=== PATIENT | female | born 1940 | race Hispanic/Latino ===

== ENCOUNTER 2017-12-30 01:16 | Emergency (ER) | payer MEDICARE, OTHER ==
[2017-12-30 02:24] LABS: ALT (SGPT) 7 U/L (8-55); AST (SGOT) 10 U/L (5-34); Albumin 3.6 g/dL (3.4-4.8); Alkaline Phosphatase 113 U/L (40-150); Anion Gap 13 mmol/L (10-20); BUN (Urea Nitrogen) 21 mg/dL (9.8-20.1); Bilirubin, Total 0.4 mg/dL (0.2-1.2); Calc. Creatinine Clearance 0 mL/min (70-130); Calcium 8.5 mg/dL (7.8-10.44); Carbon Dioxide 24 mmol/L (23-31); Chloride 102 mmol/L (98-107); Estimated GFR-MDRD 45; Globulin 3.6 g/dL (2.4-3.5); Glucose 104 mg/dL (83-110); Potassium 5.3 mmol/L (3.5-5.1); Protein, Total 7.2 g/dL (6.0-8.3); Sodium 134 mmol/L (136-145)
[2017-12-30 02:30] LABS: #Basophils 0.1 thou/uL (0.0-0.2); #Eosinphils 0.3 thou/uL (0.0-0.7); #Lymphocytes 1.7 thou/uL (1.20-3.40); #Monocytes 0.7 thou/uL (0.11-0.59); #Neutrophils 2.5 thou/uL (1.40-6.50); %Basophils 1.5 % (0.0-1.0); %Lymphocytes 31.7 % (21.0-51.0); %Monocytes 13.6 % (0.0-10.0); %Neutrophils 47.2 % (42.0-75.0); Mean Corpuscular HGB CONC 31.1 g/dL (32.0-36.0); Mean Corpuscular Hemoglobin 22.6 pg (27.0-31.0); Mean Corpuscular Volume 72.7 fl (81.0-99.0); Mean Platelet Volume 10.3 fL (7.4-10.4); Platelet Count 186 thou/uL (130-400); RBC Distribution Width 21.7 % (11.5-14.5); Red Blood Cell (RBC) Count 3.99 mill/uL (4.20-5.40); White Blood Cell (WBC) Count 5.2 thou/uL (4.8-10.8)
[2017-12-30 02:32] LABS: INR-International Normal Ratio 1.2; Prothrombin Time 15.7 SEC (12.0-14.7)
[2017-12-30 02:33] LABS: PTT 44.1 SEC (22.9-36.1)
[2017-12-30] MEDS ORDERED: HYDROcodone/Acetaminophen 10/325 mg Tablet ONE (06:13)
--- NOTE | 2017-12-30 10:14 | RAD ---
PORTABLE CHEST: Date: 12/30/17 COMPARISON: 03/14/11. HISTORY: Abdominal pain. FINDINGS: Heart size is enlarged. There are atherosclerotic changes of aorta. Lungs show some chronic change. N o focal infiltrates or signs of failure. Calcification in the left lung apex could be related to calc ified thyroid nodule or calcified lymph node in this region. IMPRESSION: Marked cardiomegaly. No signs of overt failure. POS: BEH
== END 2017-12-30 06:24 | disposition home or self-care (01) ==
LOC: ERS 01:16
DX: K62.5 Hemorrhage of anus and rectum (principal); E86.0 Dehydration; I10 Essential (primary) hypertension; E03.9 Hypothyroidism, unspecified; F41.9 Anxiety disorder, unspecified
CPT/HCPCS: 36415; 71045; 80053; 82274; 85025; 85610; 85730; 86850; 86900; 86901; 93005; 96360

== ENCOUNTER 2018-01-19 14:37 | Emergency (ER) | payer MEDICARE, OTHER ==
[2018-01-19 15:23] LABS: Hemoglobin 10.4 g/dL (12.0-16.0); Mean Corpuscular HGB CONC 31.1 g/dL (32.0-36.0); Mean Corpuscular Hemoglobin 24.3 pg (27.0-31.0); Mean Corpuscular Volume 78.2 fL (78.0-98.0); Mean Platelet Volume 10.3 fL (7.4-10.4); Platelet Count 187 thou/uL (130-400); RBC Distribution Width 23.2 % (11.5-14.5); Red Blood Cell (RBC) Count 4.29 mill/uL (4.20-5.40); White Blood Cell (WBC) Count 3.8 thou/uL (4.8-10.8)
[2018-01-19 15:43] LABS: #Eosinphils 0.2 thou/uL (0.0-0.7); #Lymphocytes 1.4 thou/uL (1.20-3.40); #Monocytes 0.5 thou/uL (0.11-0.59); #Neutrophils 1.7 thou/uL (1.40-6.50); %Basophils 0.6 % (0.0-1.0); %Eosinophils 5.2 % (0.0-10.0); %Lymphocytes 36.1 % (21.0-51.0); %Monocytes 12.7 % (0.0-10.0); %Neutrophils 45.4 % (42.0-75.0); Anisocytosis SLIGHT = 6-15 cells (100X) (0-5/hpf); Hypochromia SLIGHT = 6-15 cells (100X) (0-5/hpf); Large Platelets SLIGHT; MDiff Complete? YES; PLT Morphology Comment Appears Adequate
[2018-01-19 15:44] LABS: ALT (SGPT) 10 U/L (8-55); AST (SGOT) 14 U/L (5-34); Albumin 3.4 g/dL (3.4-4.8); Alkaline Phosphatase 87 U/L (40-150); Anion Gap 11 mmol/L (10-20); BUN (Urea Nitrogen) 16 mg/dL (9.8-20.1); Bilirubin, Total 0.3 mg/dL (0.2-1.2); Calc. Creatinine Clearance 0 mL/min (70-130); Calcium 8.5 mg/dL (7.8-10.44); Carbon Dioxide 27 mmol/L (23-31); Chloride 104 mmol/L (98-107); Estimated GFR-MDRD 66; Globulin 3.6 g/dL (2.4-3.5); Glucose 92 mg/dL (83-110); Potassium 4.4 mmol/L (3.5-5.1); Sodium 138 mmol/L (136-145)
[2018-01-19 15:48] LABS: CKMB 0.7 ng/mL (0-6.6); Troponin I Less than 0.010 ng/mL (< 0.028)
--- NOTE | 2018-01-19 16:44 | RAD ---
SINGLE VIEW OF THE CHEST: 01/19/18 COMPARISON: 12/30/17 HISTORY: Chest pain. FINDINGS: Single view of the chest shows an enlarged but stable cardiomediastinal silhouette with atherosclerot ic calcifications in the aorta. A calcification is seen in the left neck at the cervicothoracic junct ion. There is no evidence of consolidation, mass, or pleural effusion. IMPRESSION: Stable cardiomegaly. POS: BE
== END 2018-01-19 17:15 | disposition home or self-care (01) ==
LOC: ERS 14:37
DX: K64.4 Residual hemorrhoidal skin tags (principal); K62.5 Hemorrhage of anus and rectum; I26.99 Other pulmonary embolism without acute cor pulmonale; Z79.01 Long term (current) use of anticoagulants; E03.9 Hypothyroidism, unspecified; D50.9 Iron deficiency anemia, unspecified; I10 Essential (primary) hypertension; J44.9 Chronic obstructive pulmonary disease, unspecified; F41.9 Anxiety disorder, unspecified
CPT/HCPCS: 36415; 71045; 80053; 82553; 83880; 84484; 85025; 85610; 85730; 86850; 86900; 86901; 93005

== ENCOUNTER 2018-02-04 15:49 | Inpatient (IN) | payer MEDICARE, OTHER ==
[2018-02-04 16:30] LABS: Hemoglobin 10.6 g/dL (12.0-16.0); Mean Corpuscular HGB CONC 32.9 g/dL (32.0-36.0); Mean Corpuscular Hemoglobin 26.1 pg (27.0-31.0); Mean Corpuscular Volume 79.1 fL (78.0-98.0); Mean Platelet Volume 10.8 fL (7.4-10.4); Platelet Count 174 thou/uL (130-400); RBC Distribution Width 22.7 % (11.5-14.5); Red Blood Cell (RBC) Count 4.06 mill/uL (4.20-5.40); White Blood Cell (WBC) Count 3.5 thou/uL (4.8-10.8)
[2018-02-04 16:50] LABS: ALT (SGPT) Less than 7 U/L (8-55); AST (SGOT) 13 U/L (5-34); Albumin 3.5 g/dL (3.4-4.8); Alkaline Phosphatase 91 U/L (40-150); Anion Gap 12 mmol/L (10-20); BUN (Urea Nitrogen) 23 mg/dL (9.8-20.1); Bilirubin, Total 0.4 mg/dL (0.2-1.2); Calc. Creatinine Clearance 0 mL/min (70-130); Calcium 8.8 mg/dL (7.8-10.44); Carbon Dioxide 21 mmol/L (23-31); Chloride 103 mmol/L (98-107); Estimated GFR-MDRD 61; Globulin 3.8 g/dL (2.4-3.5); Glucose 100 mg/dL (83-110); Potassium 5.3 mmol/L (3.5-5.1); Protein, Total 7.3 g/dL (6.0-8.3); Sodium 131 mmol/L (136-145)
[2018-02-04 16:51] LABS: #Eosinphils 0.2 thou/uL (0.0-0.7); #Lymphocytes 1.5 thou/uL (1.20-3.40); #Monocytes 0.4 thou/uL (0.11-0.59); #Neutrophils 1.4 thou/uL (1.40-6.50); %Eosinophils 5.3 % (0.0-10.0); %Lymphocytes 41.7 % (21.0-51.0); %Monocytes 11.9 % (0.0-10.0); %Neutrophils 40.1 % (42.0-75.0); Anisocytosis SLIGHT = 6-15 cells (100X) (0-5/hpf); Hypochromia SLIGHT = 6-15 cells (100X) (0-5/hpf); MDiff Complete? YES; PLT Morphology Comment Appears Adequate
[2018-02-04 17:47] LABS: INR-International Normal Ratio 2.9; Prothrombin Time 30.2 SEC (12.0-14.7)
[2018-02-04] MEDS ORDERED: methylPREDNISolone Sod Succ/PF 125 MG/2 ML VIAL ONE (18:00)
[2018-02-04] MEDS ORDERED: diphenhydrAMINE 50 MG/ML VIAL ONE (18:00)
[2018-02-04] MEDS ORDERED: Water For Inject, Bacteriostat 30 ML ONE (18:00)
[2018-02-04] MEDS ORDERED: Famotidine 20 MG TAB ONE (18:04)
[2018-02-04 19:55] LABS: Bilirubin Negative (Negative); Blood, Urine Negative (Negative); Clarity CLEAR (Clear); Glucose, Urine (Dipstick) Negative (Negative); Leukocyte Trace (Negative); Nitrite Negative (Negative); Protein, Urine (Dipstick) Negative (Neg-Trace); Specific Gravity, Urine 1.008 (1.002-1.036); Urobilinogen 0.2 mg/dL (0.2-1.0); pH, Urine 6.5 (5.0-9.0)
[2018-02-04 19:57] LABS: Bacteria/HPF None Seen HPF (None Seen); Hyaline Casts/LPF 0-3 HYALINE CAST LPF (0-3 Hyaline); Pathc Cast-AUWi Flag 0.29 (0-2.49); RBC/HPF 0-3 HPF (0-3); Squamous Epithelial 0-3 HPF (0-3); WBC/HPF 0-3 HPF (0-3)
[2018-02-04] MEDS ORDERED: Pantoprazole 40 MG VIAL ONE (21:10)
[2018-02-04] MEDS ORDERED: Acetaminophen 325 MG TAB PO PRN (21:34)
[2018-02-04] MEDS ORDERED: Ondansetron HCl/PF 4 MG/2 ML Vial IVP PRN (21:34)
[2018-02-04 22:49] VITALS: BMI 38.0
--- NOTE | 2018-02-04 23:03 | CT ---
CT ABDOMEN WITHOUT CONTRAST: CT PELVIS WITHOUT CONTRAST: HISTORY: Bright red bloody stools. Diffuse abdominal pain. Recent hospitalization for anemia. Previous PE. COMPARISON: None. TECHNIQUE: An abdomen and pelvis CT is performed with IV contrast. Oral contrast is administered. Coronal refo rmatted images are submitted for interpretation. FINDINGS: ABDOMEN: The lung bases are clear. The heart is enlarged. There is evidence of pericardial fluid. There is atherosclerosis of the visualized aorta. No paraaortic fat stranding. Limited evaluation of the alimentary canal due to lack of IV contrast administration. Grossly, the l iver, spleen, and adrenal glands are unremarkable. There is marked atrophy of the pancreas. The left kidney appears to be surgically absent. With regard to the right kidney, multiple hypodensi ties are noted, with attenuation coefficients of 12, 14, and 6 Hounsfield unit. A combination of sim ple and complex cysts is favored. There is no evidence of an obstructing calculus in the intrarenal or extrarenal collecting system. The left kidney does appear to be surgically absent. Correlate cli nically. There is a nonspecific, well circumscribed, hypodensity on the gastrohepatic ligament, measuring 1.4 x 1.8 cm. The possibility of a lymph node is raised. There is no retrocrural or periportal lymphade nopathy. There appear to be calcified periportal lymph nodes. No mesenteric mass, lymphadenopathy, free air, or free fluid. Symmetric attenuation of the psoas muscles. The gastric mucosa, the duodenum, and multiple normal caliber small bowel loops are noted. The ileoc ecal junction is normal. There is scattered fecal material in a nondistended, nondilated colon. The re is evidence of diverticulosis without evidence of diverticulitis. There is mucosal thickening inv olving the proximal, mid, and sigmoid colon. Additional mucosal thickening in the rectum is noted. Evaluation is limited due to lack of adequate distention. Contrast is not present. PELVIS: Limited evaluation due to attenuation artifact from right hip prosthesis. No obvious pelvis mass, lymphadenopathy, free air, or free fluid. There appears to be a hemangioma involving the L1 vertebral body. Additional hemangioma at L3 is not ed. There appears to be vertebral plana at T12, likely chronic. Hemangioma at T12 is also noted. A dditional hemangioma at T8 is identified. IMPRESSION: 1. Absent left kidney. Correlate clinically for congenital absence. 2. No evidence of right-sided obstructive uropathy. 3. Nonspecific enlarged gastrohepatic lymph node. Correlate. 4. Probable simple and complex cysts associated with the right kidney. Consider renal ultrasound. 5. Multifocal vertebral body hemangiomas. Vertebral plana at T12. 6. Mucosal thickening of the colon, as described above. Evaluate is incomplete and limited. Given the patient's history, correlation with recent colonoscopy report is recommended. POS: ARI
[2018-02-04] MEDS: Sodium Chloride 0.9% 1,000 ML IV SCH (23:31)
[2018-02-04 23:54] LABS: Hemoglobin 10.9 g/dL (12.0-16.0)
[2018-02-05] MEDS: Pantoprazole 80 MG in Sodium Chloride 0.9% 100 ML IVP SCH ×2 (00:19→09:47)
[2018-02-05] MEDS: HYDROcodone/Acetaminophen 5/325 mg Tablet PO PRN ×3 (02:44→15:49)
[2018-02-05 05:53] LABS: Anion Gap 14 mmol/L (10-20); BUN (Urea Nitrogen) 19 mg/dL (9.8-20.1); Calc. Creatinine Clearance 96 mL/min (70-130); Calcium 9.2 mg/dL (7.8-10.44); Carbon Dioxide 20 mmol/L (23-31); Chloride 107 mmol/L (98-107); Estimated GFR-MDRD 66; Glucose 162 mg/dL (83-110); Potassium 5.8 mmol/L (3.5-5.1); Sodium 135 mmol/L (136-145)
[2018-02-05 06:38] LABS: #Lymphocytes 0.6 thou/uL (1.20-3.40); #Monocytes 0.1 thou/uL (0.11-0.59); #Neutrophils 1.2 thou/uL (1.40-6.50); %Basophils 0.2 % (0.0-1.0); %Eosinophils 1.5 % (0.0-10.0); %Lymphocytes 30.3 % (21.0-51.0); %Monocytes 4.3 % (0.0-10.0); %Neutrophils 63.7 % (42.0-75.0); Anisocytosis SLIGHT = 6-15 cells (100X) (0-5/hpf); Hemoglobin 11.1 g/dL (12.0-16.0); MDiff Complete? YES; Mean Corpuscular HGB CONC 31.8 g/dL (32.0-36.0); Mean Corpuscular Hemoglobin 25.3 pg (27.0-31.0); Mean Corpuscular Volume 79.5 fL (78.0-98.0); Mean Platelet Volume 11.1 fL (7.4-10.4); Platelet Count 188 thou/uL (130-400); RBC Distribution Width 22.4 % (11.5-14.5); Red Blood Cell (RBC) Count 4.39 mill/uL (4.20-5.40); White Blood Cell (WBC) Count 1.9 thou/uL (4.8-10.8)
[2018-02-05] MEDS ORDERED: Non-Formulary Item 1 EACH (Olopatadine Hcl [Olopatadine Hcl] 1 DROP) EA EYE PRN ×2 (06:38→06:55)
--- NOTE | 2018-02-05 08:38 | HP ---
CODE STATUS: Patient is FULL CODE. TIME OF EVALUATION: 09:20 p.m. PRIMARY CARE DOCTOR: Dr. Cheatham. GASTROENTEROLOGY: Dr. Iraheta. CHIEF COMPLAINT: Blood in the stools. HISTORY OF PRESENT ILLNESS: This is a 77-year-old female patient with a past medical history of colo opal polyps, also a history of pulmonary embolism, on chronic anticoagulation. The patient came to [facility] after having an episode of bloody stools, the symptoms were of sudden onset, associated wi nausea, no clear triggers, no alleviating factors. REVIEW OF SYSTEMS: Constitutional: No fever, no chills or generalized weakness. Respiratory: No c ough, no sputum production, no shortness of breath. Cardiovascular: No chest pain, palpitations, sh ortness of breath. Gastrointestinal: No nausea, no vomiting. The patient has bloody stools, abdomi nal pain. RESOURCE MANAGEMENT PLANNER: No dizziness, headache, or feeling lightheaded. Genitourinary: No burning on urina tion. Extremities: No leg swelling. All other systems were reviewed and negative except for the fi ndings mentioned above. PAST MEDICAL HISTORY: Positive for pulmonary embolism, hypothyroidism, iron deficiency anemia, hyper tension, COPD, partial nephrectomy. PAST SURGICAL HISTORY: Left knee and right hip replacement, cholecystectomy, , hysterectomy , nephrectomy on the left. PSYCHIATRIC HISTORY: Anxiety. SOCIAL HISTORY: No drugs. No smoking history. FAMILY HISTORY: Unknown. ALLERGIES: CODEINE, IODINE. REPORTED MEDICATIONS: Aspirin, albuterol, benazepril, nitro, simvastatin, Synthroid, allopurinol, ma gnesium, and iron. PHYSICAL EXAMINATION: VITAL SIGNS: On presentation, blood pressure 130/69 with heart rate 66, respiratory rate was 18, tem perature 98.3, pain was 9/10. GENERAL: Patient is alert, oriented, in no acute distress. HEENT: Eyes, normal conjunctivae. Moist oral mucosa. Eye anicteric. NECK: No JVD. RESPIRATORY: Bilateral air entry. No rales, no wheezing. Symmetric expansion. CARDIOVASCULAR: Normal rate, regular rhythm, no murmurs, no gallop, no edema. ABDOMEN: Soft, normal bowel sounds. MUSCULOSKELETAL: Baseline range of motion and strength. No tenderness. SKIN: Warm and intact. No pallor, no rash, no redness. NEUROLOGIC: Baseline sensory. No evidence of any new focal weakness. Baseline speech. Cranial ner ves seem to be intact. PSYCHIATRIC: The patient is in good mood, no anxiety, oriented, optimal judgment. IMAGING: Abdomen CAT scan was reviewed that showed no acute findings. ASSESSMENT AND PLAN: The patient was placed in the hospital with the following medical problems. 1. Gastrointestinal bleeding. Patient had melanotic stools, patient was also taking iron, so unclea r if this is a combination of the iron pills and lower gastrointestinal bleeding, hemoglobin was stab le. Dr. Iraheta has seen this patient in the past and did a colonoscopy, who has been consulted for as sistance of this patient. The patient is on chronic anticoagulation for pulmonary embolism, so we ar e unable to hold anticoagulation for now. Bleeding has been minimal. We will follow with Dr. Iraheta' s recommendation. 2. Morbid obesity, advised to lose weight. 3. Hyponatremia, sodium 135, this is minimal, no need for any acute intervention. 4. Hyperkalemia, this is mild, potassium 5.3, repeat one 5.8. We will treat accordingly. 5. Hyperglycemia, 162. 6. History of pulmonary embolism, on chronic anticoagulation that we will continue for now. 7. Deep vein thrombosis prophylaxis.
[2018-02-05] MEDS ORDERED: Non-Formulary Item 1 EACH (Brimonidine Tartrate [Alphagan P 0.1% Ophth Soln] 1 DROP) R EYE SCH (09:00)
[2018-02-05] MEDS ORDERED: Carvedilol 25 MG TAB PO SCH ×2 (09:30→21:00)
[2018-02-05] MEDS: Brimonidine Tartrate 0.2% Ophth Soln 5 ml Bottle R EYE SCH ×2 (09:47→20:06)
[2018-02-05 12:06] LABS: Hemoglobin 12.4 g/dL (12.0-16.0)
[2018-02-05 13:44] LABS: #Lymphocytes 0.7 thou/uL (1.20-3.40); #Neutrophils 1.3 thou/uL (1.40-6.50); %Basophils 0.2 % (0.0-1.0); %Eosinophils 1.9 % (0.0-10.0); %Lymphocytes 36.1 % (21.0-51.0); %Monocytes 0.6 % (0.0-10.0); %Neutrophils 61.2 % (42.0-75.0); Mean Corpuscular Hemoglobin 54.6 pg (27.0-31.0); Mean Corpuscular Volume 82.1 fL (78.0-98.0); Mean Platelet Volume 11.7 fL (7.4-10.4); Platelet Count 205 thou/uL (130-400); Red Blood Cell (RBC) Count 5.03 mill/uL (4.20-5.40); White Blood Cell (WBC) Count 2.1 thou/uL (4.8-10.8)
[2018-02-05] MEDS ORDERED: Albuterol Sulfate 2.5 mg/3 ml Neb NEB PRN (16:50)
[2018-02-05] MEDS ORDERED: diphenhydrAMINE 25 MG CAP PO PRN (17:52)
--- NOTE | 2018-02-05 18:04 | EKG ---
Test Reason : Blood Pressure : / mmHG Vent. Rate : 063 BPM Atrial Rate : 063 BPM P-R Int : 182 ms QRS Dur : 084 ms QT Int : 438 ms P-R-T Axes : 041 090 059 degrees QTc Int : 448 ms Normal sinus rhythm Rightward axis Borderline ECG When compared with ECG of 19-JAN-2018 14:55, Premature ventricular complexes are no longer Present Nonspecific T wave abnormality no longer evident in Inferior leads Confirmed by KISHORE BANG, SRich ([id number]) on 02/05/2018 6:03:43 PM Referred By: DENISE Confirmed By:DR. Selwyn NOVAK MD
[2018-02-05] MEDS: Carvedilol 25 MG TAB PO SCH (18:06)
[2018-02-05] MEDS: Sodium Chloride 0.9% 1,000 ML IV SCH (18:09)
[2018-02-05 18:42] LABS: Hemoglobin 11.5 g/dL (12.0-16.0)
[2018-02-05] MEDS: Allopurinol 100 MG TAB PO SCH (20:06)
[2018-02-05] MEDS: Ferrous Sulfate 325 MG TAB PO SCH (20:07)
[2018-02-05] MEDS ORDERED: Ketotifen Fumarate 0.025% Ophth Soln 5 ml Bottle EA EYE PRN (21:00)
[2018-02-05] MEDS ORDERED: Latanoprost 0.005% Ophth Soln 2.5 ml Bottle EA EYE SCH (21:00)
[2018-02-05] MEDS ORDERED: Non-Formulary Item 1 EACH (Bimatoprost [Lumigan 0.01% Ophth Soln] 1 DROP) R EYE SCH (21:00)
[2018-02-05] MEDS: ALPRAZolam 1 MG TAB PO PRN (21:19)
--- NOTE | 2018-02-05 22:20 | PDOC.PN ---
- Subjective Encounter Start Date: 02/05/18 Encounter Start Time: 09:00 Doing well in general. No further bleeding. - Objective Vital Signs & Weight: Vital Signs (12 hours) Temp Pulse Resp BP BP Pulse Ox 02/05/18 20:29 97.6 F 70 18 146/51 H 97 02/05/18 20:07 126/58 L 02/05/18 15:43 98.9 F 64 16 134/68 94 L 02/05/18 11:41 98.3 F 64 16 185/78 H 95 Weight Weight 235 lb 11.2 oz I&O: 02/04/18 02/05/18 02/06/18 06:59 06:59 06:59 Intake Total 100 752.4 Output Total 700 Balance -600 752.4 Result Diagrams: 02/05/18 18:31 02/05/18 04:14 Phys Exam - Physical Examination Constitutional: NAD HEENT: PERRLA Neck: no JVD, supple Respiratory: no wheezing, no rales, no rhonchi Cardiovascular: RRR, no significant murmur Gastrointestinal: soft, non-tender, no distention, positive bowel sounds Musculoskeletal: no edema Psychiatric: normal affect Dx/Plan (1) GIB (gastrointestinal bleeding) Code(s): K92.2 - GASTROINTESTINAL HEMORRHAGE, UNSPECIFIED Status: Acute (2) History of pulmonary embolism Code(s): Z86.711 - PERSONAL HISTORY OF PULMONARY EMBOLISM Status: Acute (3) Hypertension Code(s): I10 - ESSENTIAL (PRIMARY) HYPERTENSION Status: Acute (4) Hyperkalemia Code(s): E87.5 - HYPERKALEMIA Status: Acute - Plan * Hold anticoagulation. * GI consult pending. * Kayexalate. * Labs in am. * obtain records from [facility] regarding PE. Diagnosis is apparently in question. Could not get CT due to contrast allergy. Now that she is having some bleeding , may need to reassess.
[2018-02-05] MEDS: HYDROcodone/Acetaminophen 10/325 mg Tablet PO PRN (23:52)
[2018-02-06] MEDS: Sodium Chloride 0.9% 1,000 ML IV SCH ×2 (00:02→15:11)
[2018-02-06] MEDS: HYDROcodone/Acetaminophen 10/325 mg Tablet PO PRN ×3 (04:14→16:02)
--- NOTE | 2018-02-06 04:59 | CON ---
GASTROENTEROLOGY CONSULTATION NOTE DATE OF CONSULTATION: 02/05/2018 CHIEF COMPLAINT: Blood in stool. HISTORY OF PRESENT ILLNESS: Ms. Alcocer is a 77-year-old woman who is on warfarin for recently diagno sed pulmonary embolism, presented to the emergency room with blood in the stool. She states that she had one dark red blood episode mixed with brown stool the day before yesterday. Later that evening, she had another bowel movement and then when she cleaned herself afterwards, she has some blood on t he toilet paper. Yesterday, she had a couple of brown bowel movements and today she had 4 brown stoo ls without blood. She has had no nausea, vomiting, or abdominal pain. No diarrhea or constipation. She has a history of iron deficiency anemia. She underwent EGD on 12/24/2017 which was negative. I performed colonoscopy the next day, which revealed 2 large polyps which are removed. One of these p olyps had focal areas of high-grade dysplasia, however, that one was pedunculated with a clear margin . The other polyp was a tubular adenoma, which was sessile, removed by snare; however, the proximal edge was cauterized with argon plasma. Her hemoglobin is actually improved since having the large po lyps removed. She has had no worsening of her anemia associated with this hospitalization. PAST MEDICAL HISTORY: Fibromyalgia, osteoarthritis, hypertension, anxiety, obesity, obstructive slee p apnea, pulmonary embolism, colon polyps, iron deficiency anemia, apparently related to the colon po lyps. PAST SURGICAL HISTORY: Cholecystectomy, hysterectomy, , nephrectomy for tuberculosis, right hip replacement, appendectomy, colonoscopy, EGD. SOCIAL HISTORY: No alcohol, tobacco, or drugs. FAMILY HISTORY: Her father had an intestinal cancer of unknown type. Her mother had liver cancer. ALLERGIES: IODINE ____, CODEINE. CURRENT INPATIENT MEDICATIONS: Allopurinol, albuterol, benazepril, Alphagan eye drops, carisoprodol, carvedilol, ferrous sulfate, latanoprost eyedrops, levothyroxine, magnesium oxide, pantoprazole 40 m g daily, pantoprazole IV as well. REVIEW OF SYSTEMS: Negative x10 systems reviewed except as stated in the history of present illness. PHYSICAL EXAMINATION: VITAL SIGNS: Temperature 97.6, pulse 70, blood pressure ____. GENERAL: She is in no acute distress, alert and oriented x3. LUNGS: Clear to auscultation bilaterally. HEART: Regular rate and rhythm without murmur. ABDOMEN: Soft, nontender, nondistended. Bowel sounds are present. HEENT: Eyes have no scleral icterus. OROPHARYNX: Clear, without lesions. NECK: No cervical or supraclavicular lymphadenopathy. EXTREMITIES: No lower extremity edema. LABORATORY AND DIAGNOSTIC DATA: White blood cell count 2.1, hemoglobin 11.5, platelets 205,000. INR 2.9, creatinine 0.84. CT scan of the abdomen and pelvis yesterday without contrast, which showed so me mucosal thickening in the proximal and mid colon, sigmoid colon, and rectum. This is a nondistend ed colon without contrast. IMPRESSION: 1. Mild episode of hematochezia, which is now resolved. She has been passing brown stools and is no t having diarrhea. She likely had hemorrhoidal bleeding. She has been on Coumadin for pulmonary emb olism. She did have a couple of large polyps removed back in December. Followup colonoscopy was recomme nded for 06/2018. 2. Pulmonary embolism, on warfarin. RECOMMENDATIONS: 1. She has no evidence of ongoing overt bleeding. She has had recent endoscopy with negative upper endoscopy and colonoscopy with 2 large polyps removed. Followup colonoscopy should not be required u ntil June unless she has more significant ongoing active bleeding. 2. It should be okay to restart warfarin at this point and discharge home tomorrow. 3. I will sign off for now. Please call if GI can be of assistance.
[2018-02-06 05:40] LABS: Anion Gap 14 mmol/L (10-20); BUN (Urea Nitrogen) 27 mg/dL (9.8-20.1); Calc. Creatinine Clearance 87 mL/min (70-130); Calcium 8.9 mg/dL (7.8-10.44); Carbon Dioxide 20 mmol/L (23-31); Chloride 106 mmol/L (98-107); Estimated GFR-MDRD 59; Glucose 115 mg/dL (83-110); Potassium 4.4 mmol/L (3.5-5.1); Sodium 136 mmol/L (136-145)
[2018-02-06] MEDS ORDERED: Levothyroxine Sodium 100 MCG TAB PO SCH (06:00)
[2018-02-06 06:22] LABS: #Lymphocytes 1.6 thou/uL (1.20-3.40); #Monocytes 0.6 thou/uL (0.11-0.59); #Neutrophils 3.4 thou/uL (1.40-6.50); %Basophils 0.2 % (0.0-1.0); %Eosinophils 0.4 % (0.0-10.0); %Lymphocytes 28.9 % (21.0-51.0); %Monocytes 10.3 % (0.0-10.0); %Neutrophils 60.3 % (42.0-75.0); Anisocytosis SLIGHT = 6-15 cells (100X) (0-5/hpf); Hemoglobin 10.5 g/dL (12.0-16.0); MDiff Complete? YES; Mean Corpuscular HGB CONC 31.3 g/dL (32.0-36.0); Mean Corpuscular Hemoglobin 25.1 pg (27.0-31.0); PLT Morphology Comment Appears Adequate; Platelet Count 186 thou/uL (130-400); RBC Distribution Width 22.6 % (11.5-14.5); Red Blood Cell (RBC) Count 4.19 mill/uL (4.20-5.40); White Blood Cell (WBC) Count 5.6 thou/uL (4.8-10.8)
[2018-02-06] MEDS: Carvedilol 25 MG TAB PO SCH ×2 (08:19→16:02)
[2018-02-06] MEDS: Allopurinol 100 MG TAB PO SCH (08:19)
[2018-02-06] MEDS: Ferrous Sulfate 325 MG TAB PO SCH (08:19)
[2018-02-06] MEDS: Brimonidine Tartrate 0.2% Ophth Soln 5 ml Bottle R EYE SCH (08:20)
[2018-02-06] MEDS: ALPRAZolam 1 MG TAB PO PRN ×2 (08:20→16:02)
[2018-02-06] MEDS ORDERED: Magnesium Oxide 400 MG TAB PO SCH (09:00)
[2018-02-06 12:01] VITALS: BP 146/77; TEMP 98.5
== END 2018-02-06 16:35 | disposition home or self-care (01) | DRG 394 ==
LOC: ERS 15:49 → 2SE 22:33
PROVIDERS: ADMIT Hospitalist; ATTEND Hospitalist
DX: K64.9 Unspecified hemorrhoids (principal); E87.1 Hypo-osmolality and hyponatremia; Z86.711 Personal history of pulmonary embolism; I10 Essential (primary) hypertension; E87.5 Hyperkalemia; Z79.01 Long term (current) use of anticoagulants; F41.9 Anxiety disorder, unspecified; E66.9 Obesity, unspecified; Z68.38 Body mass index [BMI] 38.0-38.9, adult; G47.33 Obstructive sleep apnea (adult) (pediatric); J44.9 Chronic obstructive pulmonary disease, unspecified; E66.01 Morbid (severe) obesity due to excess calories; R73.9 Hyperglycemia, unspecified
CPT/HCPCS: 36415; 74176; 80048; 80053; 81003; 81015; 82274; 83605; 85025; 85610; 86850; 86900; 86901; 93005; 93010; 96361; 96374; 96375; C9113; J1200; J2930; J7050

== ENCOUNTER 2019-11-24 06:24 | Outpatient (CLI) | payer MEDICARE, MEDICAID, OTHER ==
[2019-11-24 13:10] LABS: #Eosinphils 0.3 thou/uL (0.0-0.7); #Lymphocytes 1.8 thou/uL (1.20-3.40); #Monocytes 0.8 thou/uL (0.11-0.59); #Neutrophils 4.4 thou/uL (1.40-6.50); %Basophils 0.3 % (0.0-1.0); %Eosinophils 3.5 % (0.0-10.0); %Lymphocytes 24.3 % (21.0-51.0); %Monocytes 11.4 % (0.0-10.0); %Neutrophils 60.5 % (42.0-75.0); Mean Corpuscular HGB CONC 31.4 g/dL (32.0-36.0); Mean Corpuscular Hemoglobin 27.7 pg (27.0-31.0); Mean Corpuscular Volume 88.3 fL (78.0-98.0); Mean Platelet Volume 8.5 fL (7.4-10.4); Platelet Count 233 thou/uL (130-400); RBC Distribution Width 14.7 % (11.5-14.5); Red Blood Cell (RBC) Count 2.89 mill/uL (4.20-5.40); White Blood Cell (WBC) Count 7.2 thou/uL (4.8-10.8)
[2019-11-24 13:28] LABS: Anion Gap 13 mmol/L (10-20); BUN (Urea Nitrogen) 29 mg/dL (9.8-20.1); Calc. Creatinine Clearance 0 mL/min (70-130); Calcium 8.6 mg/dL (7.8-10.44); Carbon Dioxide 21 mmol/L (23-31); Chloride 108 mmol/L (98-107); Estimated GFR-MDRD 35; Glucose 91 mg/dL (83-110); Potassium 6.1 mmol/L (3.5-5.1); Sodium 136 mmol/L (136-145)
--- NOTE | 2019-11-24 13:53 | RAD ---
TWO VIEW CHEST: Indications: Pre op Comparison: 01-19-18 FINDINGS: Cardiomegaly again noted and appears stable. Mild vascular prominence is stable. No focal infiltrate. Small effusions cannot be excluded. Degenerative spine changes are noted. Calcification is prominent . There is a calcified mass in the upper mediastinum to the left of the trachea which is stable from prior exam. IMPRESSION: 1. Mild cardiomegaly. Question small effusions. Chest findings are stable from prior exam. POS: AGW
--- NOTE | 2019-11-24 16:14 | EKG ---
Test Reason : Blood Pressure : / mmHG Vent. Rate : 073 BPM Atrial Rate : 073 BPM P-R Int : 186 ms QRS Dur : 078 ms QT Int : 398 ms P-R-T Axes : 077 097 068 degrees QTc Int : 438 ms Normal sinus rhythm Rightward axis Borderline ECG When compared with ECG of 05-FEB-2018 12:54, No significant change was found Confirmed by KISHORE BANG, SRich (4) on 11/24/2019 4:14:12 PM Referred By: DANA Confirmed By:DR. Selwyn NOVAK MD
[2019-11-25 11:29] LABS: SARS-CoV-2 MS2 Positive; SARS-CoV-2 N Gene Negative; SARS-CoV-2 S Gene Negative; SARS-CoV-2 orf1ab Negative
== END 2019-11-24 06:25 | disposition home or self-care (01) ==
LOC: LABBT 06:24
PROVIDERS: ATTEND Specialist
DX: Z01.818 Encounter for other preprocedural examination (principal); Z11.59 Encounter for screening for other viral diseases; K64.8 Other hemorrhoids; K62.5 Hemorrhage of anus and rectum; I51.7 Cardiomegaly
CPT/HCPCS: 71046; 80048; 85025; 93005; U0003; 87635; 93010

== ENCOUNTER 2019-11-27 07:07 | Inpatient (IN) | payer MEDICARE, OTHER ==
[2019-11-27] MEDS ORDERED: Heparin 5,000 UNITS/ML VIAL ONE (07:45)
[2019-11-27] MEDS ORDERED: Ketorolac Tromethamine 30 MG/ML VIAL ONE (07:45)
[2019-11-27] MEDS ORDERED: Fentanyl 100 MCG/2 ML VIAL ONE ×2 (08:35→09:32)
[2019-11-27] MEDS ORDERED: SUGAMMADEX SODIUM 200 MG/2 ML VIAL ONE (08:47)
[2019-11-27] MEDS ORDERED: Lidocaine 1% w/Epinephrine 1:100K 20 ML VIAL ONE (08:50)
[2019-11-27] MEDS ORDERED: Lidocaine 2% Jelly 5 ML TUBE ONE (08:50)
[2019-11-27] MEDS ORDERED: Bupivacaine 0.25% HCL 30 ML VIAL ONE (08:50)
[2019-11-27 09:22] LABS: Potassium 5.9 mmol/L (3.5-5.1)
[2019-11-27] MEDS ORDERED: Calcium Carbonate 500 MG ChewTAB PO PRN (10:17)
[2019-11-27] MEDS ORDERED: Senokot S 8.6-50 MG TAB PO PRN (10:17)
[2019-11-27] MEDS ORDERED: Bisacodyl 10 MG SUPP PR PRN (10:17)
[2019-11-27] MEDS ORDERED: Guaifenesin DM 100-10/5 ML UDCUP PO PRN (10:17)
[2019-11-27] MEDS ORDERED: Acetaminophen 325 MG TAB PO PRN (10:17)
[2019-11-27] MEDS ORDERED: Furosemide 40 MG/4 ML VIAL SLOW IVP SCH (10:30)
[2019-11-27] MEDS ORDERED: Furosemide 40 MG/4 ML VIAL ONE (10:34)
[2019-11-27] MEDS ORDERED: HYDROcodone/Acetaminophen 10/325 mg Tablet ONE (10:46)
[2019-11-27] MEDS ORDERED: NIFEdipine XL 60 MG TAB PO SCH (14:30)
[2019-11-27] MEDS: Ondansetron PF 4 MG/2 ML Vial IVP PRN (14:57)
[2019-11-27] MEDS: ALPRAZolam 1 MG TAB PO PRN ×2 (14:58→21:20)
[2019-11-27] MEDS: Furosemide 20 MG/2 ML VIAL SLOW IVP SCH (14:58)
--- NOTE | 2019-11-27 16:51 | HP ---
Ms. Alcocer is a morbidly obese 79-year-old female. She was initially seen by myself in February of last year secondary to severe anemia, suspected to be related to bleeding internal hemorrhoids. She is chronically on Coumadin and treatment of pulmonary emboli. She was scheduled for a stapled hemorrhoidectomy at that time, but she canceled the surgery secondary to fear of discomfort and never returned. More recently, she presented to the [facility], where she was found to be hyperkalemic with some degree of renal dysfunction. Although, I do not have any records from her visit at the [facility]. I told that she was transfused with several units of blood. She was found to have a hemoglobin of 5.8. Her Coumadin was discontinued and she was referred after being stabilized to my office for followup in regard to her hemorrhoids. She has remained off her Coumadin. When I saw her in the office, I again explained the surgery and reassured her that this does not tend to be a severely painful operation. She was scheduled for today. Unfortunately, her preop laboratory studies that were obtained on November 23 revealed that her potassium was elevated at 6.1. This is in spite of a minimally abnormal creatinine level of 1.44. A repeat potassium level was obtained today per anesthesia request and this revealed her potassium is still elevated at 5.9. Accordingly, her surgery has been canceled secondary to concerns regarding her safety and instability during surgery. I have contacted the Hospitalist Service for admission of the patient and treatment for hyperkalemia. If this normalizes sufficiently, then I will plan to proceed with her surgery tomorrow. Job ID: [id number]
[2019-11-27] MEDS ORDERED: Carvedilol 25 MG TAB PO SCH (17:00)
[2019-11-27] MEDS: HYDROcodone/Acetaminophen 10/325 mg Tablet PO PRN ×2 (17:04→21:23)
[2019-11-27 17:51] LABS: Anion Gap 15 mmol/L (10-20); BUN (Urea Nitrogen) 19 mg/dL (9.8-20.1); Calc. Creatinine Clearance 60 mL/min (70-130); Calcium 9.2 mg/dL (7.8-10.44); Carbon Dioxide 21 mmol/L (23-31); Chloride 108 mmol/L (98-107); Estimated GFR-MDRD 38; Glucose 99 mg/dL (83-110); Potassium 5.2 mmol/L (3.5-5.1); Sodium 139 mmol/L (136-145)
--- NOTE | 2019-11-27 18:23 | HP ---
REASON FOR ADMISSION: Hyperkalemia. HISTORY OF PRESENTING ILLNESS: The patient was scheduled for hemorrhoidectomy this morning by Dr. Olvera. The patient's lab work prior to procedure showed a potassium level of 5.9. On the , the patient had a potassium of 6.1 with BUN and creatinine of 29 and 1.4. Her surgery was held for possible intraoperative complications due to high potassium. The patient has known history of acute blood loss anemia with hemoglobin dropping down to 5. The patient was earlier asked to get surgery in February of last year, but she was scared to have it done. Subsequently, the patient got hospitalized again at [facility] with a hemoglobin of 5.8 and was given multiple units of transfusion and the patient finally made it for surgery. The patient has baseline shortness of breath. Does not complain of any palpitations or PND. She ambulates with a walker minimally. PAST MEDICAL AND SURGICAL HISTORY: History of PE, hypothyroidism, chronic anemia, hypertension, COPD, partial nephrectomy, left knee and right hip replacement, cholecystectomy, , hysterectomy, nephrectomy on the left, anxiety disorder, hemorrhoids, history of lupus which she is not for sure, hypothyroidism, and hysterectomy. PERSONAL HISTORY: Does not abuse alcohol or drugs. No history of smoking. FAMILY HISTORY: Father in his 60s. He had colon cancer. Mother at the age of 53. She had history of diabetes and hypertension. CURRENT MEDICATIONS: 1. Albuterol nebulizer q.4 hourly p.r.n. 2. Allopurinol 100 mg twice daily. 3. Alprazolam 1 mg 3 times daily p.r.n. 4. Benazepril 40 mg twice daily. 5. Lumigan and Alphagan eye drops. 6. Soma 350 mg 4 times daily p.r.n. 7. Coreg 25 mg twice daily. 8. [place] p.r.n. 9. Levothyroxine 100 mcg p.o. daily. 10. Magnesium oxide 400 mg p.o. daily. 11. Movantik 25 mg p.o. daily p.r.n. 12. Omeprazole 40 mg daily. 13. Ultram p.r.n. ALLERGIES: TO IODINE AND CODEINE, BUT THE PATIENT TAKES NORCO AT HOME. CODE STATUS: Full. Power of payroll machine operator is her daughter. REVIEW OF SYSTEMS: CONSTITUTIONAL: Negative for weight loss or gain, ability to conduct usual activities. SKIN: Negative for rash, itching. EYES: Negative for double vision, pain. ENT/MOUTH: Negative for nose bleeding, neck stiffness, pain, tenderness. CARDIOVASCULAR: Negative for palpitations, dyspnea on exertion, orthopnea. RESPIRATORY: Negative for shortness of breath, wheezing, cough, hemoptysis, fever or night sweats. GASTROINTESTINAL: Negative for poor appetite, abdominal pain, heartburn, nausea , vomiting, constipation, or diarrhea. GENITOURINARY: Negative for urgency, frequency, dysuria, nocturia. MUSCULOSKELETAL: Negative for pain, swelling. NEUROLOGIC/PSYCHIATRIC: Negative for anxiety, depression. ALLERGY/IMMUNOLOGIC: Negative for skin rash, bleeding tendency. PHYSICAL EXAMINATION: GENERAL: The patient is a 79-year-old female, who is currently not in any acute distress. VITAL SIGNS: Blood pressure 124/60, pulse 60 per minute, respiratory rate 16 per minute, temperature 97.6 degrees Fahrenheit, and saturating 98% on 2 L nasal cannula. NECK: Supple. No elevated JVD. HEENT: Eyes; extraocular muscles intact. Pupils reacting to light. Oral cavity, mucous membranes are dry. No exudates or congestion. CARDIOVASCULAR SYSTEM: S1 and S2 heard. Regular rhythm. RESPIRATORY: Air entry 1+ bilateral. Scattered rhonchi plus no rales or wheezes. ABDOMEN: Soft. Bowel sounds heard. No tenderness, rigidity, or guarding. EXTREMITIES: There is 1+ peripheral edema. No calf tenderness. VASCULAR SYSTEM: Peripheral pulses 1+ bilateral. No ischemic ulcerations or gangrene. CENTRAL NERVOUS SYSTEM: No gross focal motor deficits noted. The patient is alert and oriented well. PSYCHIATRIC SYSTEM: The patient's mood is euthymic. No hallucinations or delusions. LABORATORY DATA: The serum potassium was 5.9 this morning. The patient's H and H were 8 and 25 on the , platelet count of 233, white count of 7, MCV is 88 with 60% neutrophils. BUN 29 and creatinine 1.4, these two were on the . Serum bicarb of 21 on the same day. The patient has had a COVID test done on the , which was negative. CLINICAL IMPRESSION AND PLAN: The patient will be admitted to telemetry for hyperkalemia and mild acute kidney injury. The patient has been on hemodialysis before for a brief period and knows Dr. Simmons well. I have spoken to Dr. Simmons regarding hyperkalemia. We will give her one dose of Lasix 40 mg IV now and again 20 mg IV at 6 a.m. and 2 p.m. She will also be on Kayexalate 30 g q.6 hourly x2 doses. We will obtain a repeat BMP in the evening. Based on the numbers on the repeat metabolic panel further medications will be added. We will keep her on clear liquid diet and n.p.o. after midnight. Dr. Olvera has evaluated the patient. The plan is to proceed for surgery in the morning, if her metabolic panel remains stable. This is in view of recurrent anemia requiring multiple transfusions. We will continue her carvedilol, levothyroxine, Procardia XL, and Protonix as before. The patient will also be on sodium bicarbonate 650 mg twice daily. We will continue to closely monitor her on telemetry. Currently, the patient does not have any arrhythmias on the telemetry. Job ID: [id number] MTDD
[2019-11-27] MEDS ORDERED: Ketotifen Fumarate 0.025% Ophth Soln 5 ml Bottle EA EYE PRN (21:00)
[2019-11-27] MEDS: Latanoprost 0.005% Ophth Soln 2.5 ml Bottle R EYE SCH (21:15)
[2019-11-27] MEDS: Allopurinol 100 MG TAB PO SCH (21:15)
[2019-11-27] MEDS: Sodium Bicarbonate Tab 325 MG TAB PO SCH (21:15)
[2019-11-27] MEDS: Brimonidine Tartrate 0.2% Ophth Soln 5 ml Bottle R EYE SCH (21:17)
--- NOTE | 2019-11-28 00:29 | CON ---
DATE OF CONSULTATION: CONSULTING PHYSICIAN: Troy Uriostegui MD REQUESTING PHYSICIAN: Eduardo Anderson MD. REASON FOR CONSULTATION: 1. Hyperkalemia out of proportion with degree of renal dysfunction. 2. Chronic kidney disease versus acute on chronic kidney disease. 3. Morbid obesity. PLAN: 1. This hyperkalemia is likely in the context of benazepril usage with the drop in the GFR of this patient. The side effect of hyperkalemia got exacerbated. Therefore, we would discontinue this medication permanently. 2. In place of this medication resume another antihypertensive medication to optimize the hemodynamics. 3. We will initiate sodium bicarbonate in this patient as this will help with the cellular shift of potassium as patient does have some degree of metabolic acidosis. 4. I do agree with medical treatment of hyperkalemia including Kayexalate and insulin dextrose. 5. Further management to be dependent on the clinical course. HISTORY: A 79-year-old female patient with morbid obesity, who was scheduled to undergo elective hemorrhoidectomy. Incidentally, noted to have elevated potassium at 6.1. The patient noted with elevated creatinine at 1.44 above her baseline creatinine from 0.7. As a result of the inconsistency and out of proportion hyperkalemia, decision was taken to involve Renal in the management of this case. PAST MEDICAL HISTORY: Significant for morbid obesity, hypertension, recurrent hyperkalemia, pulmonary embolism on Coumadin, recently placed on hold for bleeding hemorrhoids. FAMILY HISTORY: Nonsignificantly related to present illness. SOCIAL HISTORY: No tobacco. No illicit drug use. REVIEW OF SYSTEMS: As documented in the body of history. All the other systems were reviewed and found not to be significantly related to presenting illness. PHYSICAL EXAMINATION: GENERAL: The patient was found to have some GI discomfort. VITAL SIGNS: Otherwise noted with the following vital signs; afebrile, temperature 97.6, pulse 68, respiratory rate of 13, O2 saturations of 98%, blood pressure 184/72. HEENT: Unremarkable. CARDIOVASCULAR SYSTEM: First and second heart sounds were heard. RESPIRATORY SYSTEM: Clear to auscultation. DIGESTIVE SYSTEM: Obese abdomen. EXTREMITIES: No peripheral edema. SKIN: No new gross rash. LYMPHATICS: No peripheral lymphadenopathy. SUMMARY: A 79-year-old female patient who incidentally found to have severe hyperkalemia. Thank you for this consultation. We will follow with you. Job ID: [id number]
[2019-11-28 04:23] LABS: #Basophils 0.1 thou/uL (0.0-0.2); #Eosinphils 0.3 thou/uL (0.0-0.7); #Lymphocytes 1.4 thou/uL (1.20-3.40); #Monocytes 0.7 thou/uL (0.11-0.59); #Neutrophils 3.8 thou/uL (1.40-6.50); %Basophils 0.9 % (0.0-1.0); %Eosinophils 4.2 % (0.0-10.0); %Lymphocytes 22.8 % (21.0-51.0); %Monocytes 11.1 % (0.0-10.0); Mean Corpuscular HGB CONC 31.1 g/dL (32.0-36.0); Mean Corpuscular Hemoglobin 28.1 pg (27.0-31.0); Mean Corpuscular Volume 90.3 fL (78.0-98.0); Mean Platelet Volume 8.2 fL (7.4-10.4); Platelet Count 276 thou/uL (130-400); RBC Distribution Width 15.5 % (11.5-14.5); Red Blood Cell (RBC) Count 2.85 mill/uL (4.20-5.40); White Blood Cell (WBC) Count 6.3 thou/uL (4.8-10.8)
[2019-11-28 04:49] LABS: ALT (SGPT) 8 U/L (8-55); AST (SGOT) 18 U/L (5-34); Albumin 3.2 g/dL (3.4-4.8); Alkaline Phosphatase 87 U/L (40-110); Anion Gap 16 mmol/L (10-20); BUN (Urea Nitrogen) 18 mg/dL (9.8-20.1); Bilirubin, Total 0.2 mg/dL (0.2-1.2); Calc. Creatinine Clearance 64 mL/min (70-130); Calcium 8.4 mg/dL (7.8-10.44); Carbon Dioxide 18 mmol/L (23-31); Chloride 110 mmol/L (98-107); Estimated GFR-MDRD 41; Globulin 3.4 g/dL (2.4-3.5); Glucose 85 mg/dL (83-110); Potassium 5.1 mmol/L (3.5-5.1); Protein, Total 6.6 g/dL (6.0-8.3); Sodium 139 mmol/L (136-145)
[2019-11-28] MEDS ORDERED: Sodium Chloride 0.9% 10 ML ONE (06:11)
[2019-11-28] MEDS: Furosemide 20 MG/2 ML VIAL SLOW IVP SCH ×2 (06:42→14:00)
[2019-11-28] MEDS: Levothyroxine Sodium 100 MCG TAB PO SCH (06:44)
[2019-11-28] MEDS: Sodium Bicarbonate Tab 325 MG TAB PO SCH ×2 (09:45→20:44)
[2019-11-28] MEDS: Enoxaparin Sodium 30 MG/0.3 ML SYRINGE SC SCH (09:45)
[2019-11-28] MEDS: Magnesium Oxide 400 MG TAB PO SCH ×2 (09:59→11:29)
[2019-11-28] MEDS: Carvedilol 6.25 MG TAB PO SCH ×2 (10:03→16:51)
[2019-11-28] MEDS: NIFEdipine XL 60 MG TAB PO SCH (10:03)
[2019-11-28] MEDS: Allopurinol 100 MG TAB PO SCH ×2 (10:03→20:44)
[2019-11-28] MEDS: Brimonidine Tartrate 0.2% Ophth Soln 5 ml Bottle R EYE SCH ×2 (10:04→20:46)
[2019-11-28] MEDS: HYDROcodone/Acetaminophen 10/325 mg Tablet PO PRN ×2 (11:29→21:16)
[2019-11-28] MEDS ORDERED: Lidocaine 1% PF 5 ML VIAL ONE (11:56)
[2019-11-28] MEDS ORDERED: PROPOFOL 200 MG/20 ML VIAL ONE (11:56)
[2019-11-28] MEDS ORDERED: Rocuronium Bromide 10 MG/ML (10ML VIAL) ONE (11:56)
[2019-11-28] MEDS ORDERED: Ondansetron PF 4 MG/2 ML Vial ONE (11:56)
[2019-11-28] MEDS ORDERED: Glycopyrrolate 0.2 MG/ML 5 ML SYRINGE ONE (11:56)
[2019-11-28] MEDS ORDERED: PHENYLEPHRINE-NS 100 MCG/ML 10 ML SYRINGE ONE (11:56)
[2019-11-28] MEDS ORDERED: Morphine 2 MG/ML SYRINGE SLOW IVP PRN (12:29)
--- NOTE | 2019-11-28 12:33 | PDOC.HOSPP ---
- Subjective Encounter Date: 11/28/19 Encounter Time: 09:00 Subjective: has gen weakness, wants the surgery done and get over with it. no chest pain or palp - Objective Vital Signs & Weight: Vital Signs (12 hours) Temp Pulse Pulse Resp BP BP BP 11/28/19 11:24 98.2 F 76 20 137/62 11/28/19 09:08 79 139/73 11/28/19 07:46 11/28/19 07:45 11/28/19 07:41 96.9 F L 72 15 96/55 L 11/28/19 03:35 98.5 F 66 18 145/63 H Pulse Ox Pulse Ox 11/28/19 11:24 94 L 11/28/19 09:08 94 L 11/28/19 07:46 93 L 11/28/19 07:45 87 L 11/28/19 07:41 92 L 11/28/19 03:35 92 L Weight Weight 238 lb 6.4 oz I&O: 11/27/19 11/28/19 11/29/19 06:59 06:59 06:59 Intake Total 960 320 Output Total 1175 850 Balance -215 -530 Result Diagrams: 11/28/19 03:49 11/28/19 03:49 Hospitalist ROS - Medication Medications: Active Medications Generic Name Dose Route Start Last Admin Trade Name Freq PRN Reason Stop Dose Admin Hydrocodone Bitart/Acetaminophen 1 tab 11/27/19 10:20 11/28/19 11:29 [place] 10/325 PO 1 tab Q4H PRN Administration Moderate Pain (4-6) Allopurinol 100 mg 11/27/19 21:00 11/28/19 10:03 Zyloprim PO 100 mg BID EMILI Administration Alprazolam 1 mg 11/27/19 10:20 11/27/19 21:20 Xanax PO 1 mg TIDPRN PRN Administration Anxiety Brimonidine Tartrate 1 drop 11/27/19 21:00 11/28/19 10:04 Alphagan 0.2% Ophth Soln R EYE 1 drop BID EMILI Administration Carvedilol 6.25 mg 11/28/19 08:00 11/28/19 10:03 Coreg PO 6.25 mg BID-WM EMILI Administration Enoxaparin Sodium 30 mg 11/28/19 09:00 11/28/19 09:45 Lovenox SC Not Given 0900 EMILI Furosemide 20 mg 11/27/19 14:00 11/28/19 06:42 Lasix SLOW IVP 20 mg 0600,1400 MEILI Administration Latanoprost 1 drop 11/27/19 21:00 11/27/19 21:15 Xalatan 0.005% Ophth Soln R EYE 1 drp HS EMILI Administration Levothyroxine Sodium 100 mcg 11/28/19 06:00 11/28/19 06:44 Synthroid PO 100 mcg 0600 EMILI Administration Magnesium Oxide 400 mg 11/28/19 09:00 11/28/19 11:29 Magnesium Oxide PO 400 mg DAILY EMILI Administration Nifedipine 60 mg 11/28/19 09:00 11/28/19 10:03 Procardia Xl PO 60 mg DAILY EMILI Administration Ondansetron HCl 4 mg 11/27/19 10:17 11/27/19 14:57 Zofran IVP 4 mg Q6H PRN Administration Nausea/Vomiting Pantoprazole Sodium 40 mg 11/28/19 09:00 11/28/19 09:45 Protonix PO Not Given DAILY [facility] Sodium Bicarbonate 650 mg 11/27/19 21:00 11/28/19 09:45 Bicarbonate, Sodium PO Not Given BID [facility] - Exam General Appearance: awake alert Eye: PERRL, anicteric sclera ENT: no oropharyngeal lesions, moist mucosa Neck: supple, no JVD Heart: RRR, no murmur Respiratory: no wheezes, no rales Gastrointestinal: soft, non-tender, non-distended, normal bowel sounds Extremities: no cyanosis, 2+ LE edema Neurological: cranial nerve grossly intact, no focal deficits Psychiatric: A&O x 3 Hosp A/P (1) Hyperkalemia Code(s): E87.5 - HYPERKALEMIA Status: Acute (2) AGUSTIN (acute kidney injury) Code(s): N17.9 - ACUTE KIDNEY FAILURE, UNSPECIFIED Status: Resolved (3) Hemorrhoids Code(s): K64.9 - UNSPECIFIED HEMORRHOIDS Status: Chronic Qualifiers: Hemorrhoid type: unspecified Qualified Code(s): K64.9 - Unspecified hemorrhoids (4) Chronic anemia Code(s): D64.9 - ANEMIA, UNSPECIFIED Status: Chronic (5) Obesity (BMI 30-39.9) Code(s): E66.9 - OBESITY, UNSPECIFIED Status: Chronic (6) Dyslipidemia Code(s): E78.5 - HYPERLIPIDEMIA, UNSPECIFIED Status: Chronic (7) History of pulmonary embolism Code(s): Z86.711 - PERSONAL HISTORY OF PULMONARY EMBOLISM Status: Chronic (8) Hypertension Code(s): I10 - ESSENTIAL (PRIMARY) HYPERTENSION Status: Chronic Qualifiers: Hypertension type: essential hypertension Qualified Code(s): I10 - Essential (primary) hypertension - Plan is npo for hemorrhoid surgery today electrolytes are stable, renal function is trending towards baseline has chronic edema in LE, to wear stephanie hose after surgery, has cramping in both legs and takes soma at home, will give morphine until npo and switch her back continue lasix, sod bicarb, coreg, procardia, protonix, allopurinol and synthroid hemostable outpt f/u with investigator internal revenue at [facility] upon dc. oral iron on discharge
[2019-11-28 13:07] VITALS: BMI 38.5
[2019-11-28] MEDS: ALPRAZolam 1 MG TAB PO PRN (14:01)
[2019-11-28] MEDS ORDERED: Fentanyl 100 MCG/2 ML VIAL ONE ×2 (15:23→17:54)
[2019-11-28] MEDS ORDERED: Lidocaine 2% Jelly 5 ML TUBE ONE (15:24)
[2019-11-28] MEDS ORDERED: Lidocaine 1% w/Epinephrine 1:100K 20 ML VIAL ONE (15:34)
[2019-11-28] MEDS ORDERED: Bupivacaine 0.25% HCL 30 ML VIAL ONE (15:34)
[2019-11-28] MEDS ORDERED: Heparin 5,000 UNITS/ML VIAL ONE (15:42)
[2019-11-28] MEDS ORDERED: Promethazine HCl 25 MG/ML VIAL ONE (17:40)
--- NOTE | 2019-11-28 18:42 | PRG ---
DATE OF SERVICE: 11/28/2019 SUBJECTIVE: The patient was seen and noted with the following vital signs. OBJECTIVE: VITAL SIGNS: Afebrile, temperature 98.2, pulse 76, respiratory rate of 20, blood pressure 145/63. HEENT: Unremarkable. CARDIOVASCULAR SYSTEM: First and second heart sounds were heard. RESPIRATORY SYSTEM: Clear to auscultation. DIGESTIVE SYSTEM: Revealed a benign abdomen. Positive bowel sounds. EXTREMITIES: No peripheral edema. SKIN: No new gross rash. LYMPHATICS: No peripheral lymphadenopathy. IMPRESSION: 1. Acute on chronic kidney disease, which seems to show some improvement. 2. Metabolic acidosis. 3. Hyperkalemia, which has resolved. PLAN: 1. The patient to continue with current renal supportive measures. 2. Sodium bicarbonate supplementations. 3. Permanently discontinue benazepril. 4. Further management to be dependent on the clinical course. Job ID: [id number]
[2019-11-28] MEDS: Latanoprost 0.005% Ophth Soln 2.5 ml Bottle R EYE SCH (20:46)
--- NOTE | 2019-11-28 20:55 | PDOC.EVN ---
Event Note - Event Note Event Note: Notified by RN, patient s/p hemorrhoidectomy. No urine output, bladder scan done showing 800 mLs. Unable to empty bladder. Cramer ordered as well as UA/UCx.
[2019-11-28 21:45] LABS: Bilirubin Negative (Negative); Blood, Urine Trace (Negative); Clarity Clear (Clear); Glucose, Urine (Dipstick) Normal (Negative); Leukocyte 500 Leu/uL (Negative); Nitrite 2+ (Negative); Protein, Urine (Dipstick) Negative (Neg-Trace); RBC/HPF 0-3 HPF (0-3); Squamous Epithelial 0-3 HPF (0-3); Urobilinogen Normal mg/dL (Less than 2); WBC/HPF 21-50 HPF (0-3)
[2019-11-28 21:55] LABS: Bacteria/HPF 2+ HPF (None Seen)
[2019-11-28 21:56] LABS: Urine Culture Reflex Yes Yes
--- NOTE | 2019-11-29 00:25 | OP ---
DATE OF PROCEDURE: 11/28/2019 PREOPERATIVE DIAGNOSIS: Bleeding internal hemorrhoids. POSTOPERATIVE DIAGNOSIS: Bleeding internal hemorrhoids. PROCEDURES PERFORMED: PPH stapled hemorrhoidectomy. ANESTHESIA: General endotracheal. INDICATIONS: The patient is a morbidly obese 79-year-old chronically ill female. She has presented on 2 separate occasions with a very low hemoglobin of 5.8. No other bleeding source was identified other than her hemorrhoids. She was taken to the operating room at this time for further treatment of this. DESCRIPTION OF OPERATION: Informed consent was obtained. Patient taken to the operating room where general anesthesia was obtained with patient is supine position. She was rolled over to prone pepe-knife position. Buttocks were taped apart. The area was prepped with Betadine, draped in sterile fashion. Local anesthetic was infiltrated in four-quadrant intersphincteric fashion using a mixture of 1% lidocaine with epinephrine and 0.25% Marcaine. The rectal dilator was passed uneventfully. The rectal retractor was then positioned and held in place with 4 interrupted sutures of 2-0 Vicryl. The partial obturator was then used to place a pursestring suture of 2-0 Prolene several centimeters proximal to the dentate line. The stapler was obtained and maximally opened. The suture was secured around the post of the stapler. The tails were withdrawn through the lateral openings in the stapler. With traction on the suture line, the stapler was closed maximally. The stapler was fired and removed. The tissue that was excised was examined. It was of appropriate thickness and width. The staple line was meticulously inspected. There were couple of areas of minimal oozing that were repaired with a single interrupted suture of 3-0 Vicryl. Additional local anesthetic was infiltrated. Avitene foam was placed within the anal canal. Dry gauze dressing and mesh pants were placed externally. There were no complications. The patient tolerated the procedure well and was taken to recovery room in stable condition. Job ID: [id number]
[2019-11-29] MEDS: ALPRAZolam 1 MG TAB PO PRN ×3 (00:54→16:20)
[2019-11-29] MEDS: HYDROcodone/Acetaminophen 10/325 mg Tablet PO PRN ×4 (01:01→20:42)
[2019-11-29] MEDS: Furosemide 20 MG/2 ML VIAL SLOW IVP SCH (05:52)
[2019-11-29] MEDS: Levothyroxine Sodium 100 MCG TAB PO SCH (05:52)
[2019-11-29] MEDS: Carvedilol 6.25 MG TAB PO SCH ×2 (08:00→17:59)
[2019-11-29] MEDS: NIFEdipine XL 60 MG TAB PO SCH (08:00)
[2019-11-29] MEDS: Allopurinol 100 MG TAB PO SCH ×2 (08:00→20:39)
[2019-11-29] MEDS: Magnesium Oxide 400 MG TAB PO SCH (08:00)
[2019-11-29] MEDS: Sodium Bicarbonate Tab 325 MG TAB PO SCH ×2 (08:00→20:38)
[2019-11-29] MEDS: Enoxaparin Sodium 30 MG/0.3 ML SYRINGE SC SCH (08:01)
[2019-11-29] MEDS: Brimonidine Tartrate 0.2% Ophth Soln 5 ml Bottle R EYE SCH ×2 (08:01→20:39)
[2019-11-29 08:23] LABS: Anion Gap 21 mmol/L (10-20); BUN (Urea Nitrogen) 17 mg/dL (9.8-20.1); Calc. Creatinine Clearance 57 mL/min (70-130); Calcium 8.6 mg/dL (7.8-10.44); Carbon Dioxide 16 mmol/L (23-31); Chloride 110 mmol/L (98-107); Estimated GFR-MDRD 38; Glucose 112 mg/dL (83-110); Sodium 142 mmol/L (136-145)
[2019-11-29] MEDS: Ondansetron PF 4 MG/2 ML Vial IVP PRN (09:11)
[2019-11-29] MEDS: Ondansetron ODT 4 MG TAB PO PRN (10:10)
[2019-11-29 10:19] LABS: #Eosinphils 0.2 thou/uL (0.0-0.7); #Lymphocytes 1.3 thou/uL (1.20-3.40); #Monocytes 0.9 thou/uL (0.11-0.59); %Basophils 0.1 % (0.0-1.0); %Eosinophils 2.6 % (0.0-10.0); %Monocytes 12.8 % (0.0-10.0); %Neutrophils 67.6 % (42.0-75.0); Hemoglobin 8.6 g/dL (12.0-16.0); Mean Corpuscular HGB CONC 32.3 g/dL (32.0-36.0); Mean Corpuscular Hemoglobin 28.9 pg (27.0-31.0); Mean Corpuscular Volume 89.5 fL (78.0-98.0); Mean Platelet Volume 8.3 fL (7.4-10.4); Platelet Count 277 thou/uL (130-400); RBC Distribution Width 16.6 % (11.5-14.5); Red Blood Cell (RBC) Count 2.97 mill/uL (4.20-5.40); White Blood Cell (WBC) Count 7.4 thou/uL (4.8-10.8)
[2019-11-29] MEDS ORDERED: Polyethylene Glycol 3350 17 GM Packet PO SCH (10:30)
--- NOTE | 2019-11-29 11:41 | PDOC.HOSPP ---
- Subjective Encounter Date: 11/29/19 Encounter Time: 08:00 Subjective: c/o nausea, has pain in her anal area has not been eating/drinking or ambulating so far - Objective Vital Signs & Weight: Vital Signs (12 hours) Temp Pulse Resp BP BP Pulse Ox 11/29/19 07:57 98.4 F 83 18 140/63 18 L 11/29/19 03:53 97.6 F 78 20 134/57 L 94 L 11/29/19 00:00 93 L Weight Admit Weight 245 lb Weight 232 lb 14.4 oz I&O: 11/28/19 11/29/19 11/30/19 06:59 06:59 06:59 Intake Total 960 800 12 Output Total 1175 2250 Balance -215 -1450 12 Result Diagrams: 11/29/19 09:38 11/29/19 07:38 Hospitalist ROS - Medication Medications: Active Medications Generic Name Dose Route Start Last Admin Trade Name Freq PRN Reason Stop Dose Admin Hydrocodone Bitart/Acetaminophen 1 tab 11/27/19 10:20 11/29/19 08:03 [place] 10/325 PO 1 tab Q4H PRN Administration Moderate Pain (4-6) Allopurinol 100 mg 11/27/19 21:00 11/29/19 08:00 Zyloprim PO 100 mg BID EMILI Administration Alprazolam 1 mg 11/27/19 10:20 11/29/19 08:03 Xanax PO 1 mg TIDPRN PRN Administration Anxiety Brimonidine Tartrate 1 drop 11/27/19 21:00 11/29/19 08:01 Alphagan 0.2% Ophth Soln R EYE 1 drop BID EMILI Administration Carvedilol 6.25 mg 11/28/19 08:00 11/29/19 08:00 Coreg PO 6.25 mg BID-WM EMILI Administration Enoxaparin Sodium 30 mg 11/28/19 09:00 11/29/19 08:01 Lovenox SC 30 mg 0900 EMILI Administration Latanoprost 1 drop 11/27/19 21:00 11/28/19 20:46 Xalatan 0.005% Ophth Soln R EYE 1 drp HS EMILI Administration Levothyroxine Sodium 100 mcg 11/28/19 06:00 11/29/19 05:52 Synthroid PO 100 mcg 0600 EMILI Administration Magnesium Oxide 400 mg 11/28/19 09:00 11/29/19 08:00 Magnesium Oxide PO 400 mg DAILY EMILI Administration Nifedipine 60 mg 11/28/19 09:00 11/29/19 08:00 Procardia Xl PO 60 mg DAILY EMILI Administration Ondansetron HCl 4 mg 11/27/19 10:17 11/29/19 09:11 Zofran IVP 4 mg Q6H PRN Administration Nausea/Vomiting Ondansetron HCl 4 mg 11/29/19 09:39 11/29/19 10:10 Zofran Odt PO 4 mg Q6H PRN Administration Nausea/Vomiting Pantoprazole Sodium 40 mg 11/28/19 09:00 11/29/19 08:00 Protonix PO 40 mg DAILY EMILI Administration Polyethylene Glycol 17 gm 11/29/19 10:30 11/29/19 10:11 Miralax PO 11/29/19 12:30 17 gm 1030 EMILI Administration Sodium Bicarbonate 650 mg 11/27/19 21:00 11/29/19 08:00 Bicarbonate, Sodium PO 650 mg BID EMILI Administration Sodium Chloride 10 ml 11/28/19 21:00 11/29/19 09:58 Flush - Normal Saline IVF Not Given Q12HR EMILI Sodium Chloride 10 ml 11/28/19 12:40 11/29/19 05:53 Flush - Normal Saline IVF 10 ml PRN PRN Administration Saline Flush - Exam General Appearance: awake alert Eye: PERRL, anicteric sclera ENT: no oropharyngeal lesions, dry oral mucosa Neck: supple, no JVD Heart: RRR, no murmur Respiratory: no wheezes, no rales Gastrointestinal: soft, non-tender, non-distended, normal bowel sounds Extremities: no cyanosis, 2+ LE edema Neurological: cranial nerve grossly intact, no focal deficits Psychiatric: A&O x 3 Hosp A/P (1) Hyperkalemia Code(s): E87.5 - HYPERKALEMIA Status: Resolved (2) AGUSTIN (acute kidney injury) Code(s): N17.9 - ACUTE KIDNEY FAILURE, UNSPECIFIED Status: Resolved (3) Hemorrhoids Code(s): K64.9 - UNSPECIFIED HEMORRHOIDS Status: Chronic Qualifiers: Hemorrhoid type: unspecified Qualified Code(s): K64.9 - Unspecified hemorrhoids (4) Chronic anemia Code(s): D64.9 - ANEMIA, UNSPECIFIED Status: Chronic (5) Obesity (BMI 30-39.9) Code(s): E66.9 - OBESITY, UNSPECIFIED Status: Chronic (6) Dyslipidemia Code(s): E78.5 - HYPERLIPIDEMIA, UNSPECIFIED Status: Chronic (7) History of pulmonary embolism Code(s): Z86.711 - PERSONAL HISTORY OF PULMONARY EMBOLISM Status: Chronic (8) Hypertension Code(s): I10 - ESSENTIAL (PRIMARY) HYPERTENSION Status: Chronic Qualifiers: Hypertension type: essential hypertension Qualified Code(s): I10 - Essential (primary) hypertension - Plan had hemorrhoid surgery 11/28/2019 electrolytes are stable, renal function is trending towards baseline has chronic edema in LE, says it hurts to wear stephanie hose continue lasix oral, sod bicarb, coreg, procardia, protonix, allopurinol and synthroid hemostable outpt f/u with ed case manager at [facility] upon dc. oral iron on discharge PT to mobilize as tolerated, may dc home if she ambulates and starts eating, d/ w .
--- NOTE | 2019-11-29 15:03 | PRG ---
DATE OF SERVICE: 11/29/2019 SUBJECTIVE: Ms. Alcocer is postoperative day #1 from PPH stapled hemorrhoidectomy. I was surprised to find that she was still in the hospital as I had cleared her for discharge after her surgery yesterday. She had been admitted before the surgery secondary to hyperkalemia. Today, her potassium has dropped further and is down to 5.0. Her hemoglobin is actually up from yesterday and it is 8.6. Apparently, she had urinary retention last night and a Cramer catheter was placed with output of several 100 mL of urine. Her Cramer catheter is still in place. The patient has no complaints. She notes mild rectal soreness, but tells me that she really does not have much pain. She has not had a bowel movement yet. She has only been given clear liquids and has requested a diet, which I of course agreed to. OBJECTIVE: VITAL SIGNS: She is afebrile, pulse 78, blood pressure 118/55. RECTAL: Not performed. ASSESSMENT AND PLAN: The patient is stable following her hemorrhoidectomy. I will advance her diet to a consistent carbohydrate diet and I would encourage her hospitalists to remove her Cramer catheter, give her a voiding trial and discharge her today. She tells me that she feels well and is ready for discharge. Job ID: [id number]
[2019-11-29] MEDS: Furosemide 20 MG TAB PO SCH (16:21)
[2019-11-29] MEDS: Latanoprost 0.005% Ophth Soln 2.5 ml Bottle R EYE SCH (20:40)
--- NOTE | 2019-11-30 00:55 | PRG ---
DATE OF SERVICE: 11/29/2019 SUBJECTIVE: The patient is seen and noted with the following vital signs. Complaining of some abdominal discomfort and pain. OBJECTIVE: VITAL SIGNS: Noted with the following vital signs; afebrile, temperature 97, pulse 75, respiratory rate of 20, O2 saturation of 95% with a blood pressure 129/53. HEENT: Unremarkable. CARDIOVASCULAR SYSTEM: 1st and 2nd sounds were heard. RESPIRATORY SYSTEM: Clear to auscultation. DIGESTIVE SYSTEM: Revealed a benign abdomen. Positive bowel sounds. EXTREMITIES: No peripheral edema. SKIN: No new gross rash. LYMPHATICS: No peripheral lymphadenopathy. LABORATORY INVESTIGATION: Showed a hemoglobin of 8.6. Chemistry showed bicarb of 16, BUN of 17 with a creatinine of 1.35, potassium 5.0. IMPRESSION: 1. Hyperkalemia, likely in the context of benazepril usage. 2. Possible renal tubular acidosis type 4, which will also contribute to the hyperkalemia in addition to the benazepril and continued the metabolic acidosis in the context of alkalotic urine. 3. Obesity. 4. Possible urinary tract infection. PLAN: 1. We will continue with sodium bicarbonate supplementation. 2. Continue to this monitor the hemodynamics and control the blood pressure appropriately. 3. Followup the urine culture. The patient may benefit from antibiotic coverage of urinary tract infection. Job ID: [id number]
[2019-11-30] MEDS: ALPRAZolam 1 MG TAB PO PRN ×3 (02:11→20:46)
[2019-11-30] MEDS: HYDROcodone/Acetaminophen 10/325 mg Tablet PO PRN ×3 (02:14→20:45)
[2019-11-30] MEDS: Levothyroxine Sodium 100 MCG TAB PO SCH (05:10)
[2019-11-30] MEDS: Furosemide 20 MG TAB PO SCH ×2 (05:10→13:05)
[2019-11-30] MEDS: Magnesium Oxide 400 MG TAB PO SCH (08:44)
[2019-11-30] MEDS: Carvedilol 6.25 MG TAB PO SCH ×2 (08:44→16:06)
[2019-11-30] MEDS: Sodium Bicarbonate Tab 325 MG TAB PO SCH ×2 (08:44→20:44)
[2019-11-30] MEDS: Allopurinol 100 MG TAB PO SCH ×2 (08:44→20:46)
[2019-11-30] MEDS: Enoxaparin Sodium 30 MG/0.3 ML SYRINGE SC SCH (08:44)
[2019-11-30] MEDS: NIFEdipine XL 60 MG TAB PO SCH (08:44)
[2019-11-30] MEDS: Polyethylene Glycol 3350 17 GM Packet PO SCH (08:45)
[2019-11-30] MEDS: Brimonidine Tartrate 0.2% Ophth Soln 5 ml Bottle R EYE SCH ×2 (08:54→20:49)
--- NOTE | 2019-11-30 20:21 | PDOC.HOSPP ---
- Subjective Encounter Date: 11/30/19 Subjective: She is complaining of anal pain. - Objective Vital Signs & Weight: Vital Signs (12 hours) Temp Pulse Pulse Resp BP BP BP 11/30/19 19:33 97.9 F 72 18 115/58 L 11/30/19 15:35 98.0 F 78 17 114/55 L 11/30/19 13:59 76 116/57 L 11/30/19 11:02 97.8 F 72 16 124/58 L Pulse Ox 11/30/19 19:33 95 11/30/19 15:35 98 11/30/19 13:59 11/30/19 11:02 92 L Weight Admit Weight 245 lb Weight 238 lb 4.8 oz I&O: 11/29/19 11/30/19 12/01/19 06:59 06:59 06:59 Intake Total 800 1132 720 Output Total 2250 850 Balance -1450 282 720 Result Diagrams: 11/29/19 09:38 11/29/19 07:38 Hospitalist ROS - Medication Medications: Active Medications Generic Name Dose Route Start Last Admin Trade Name Freq PRN Reason Stop Dose Admin Hydrocodone Bitart/Acetaminophen 1 tab 11/27/19 10:20 11/30/19 11:55 [place] 10/325 PO 1 tab Q4H PRN Administration Moderate Pain (4-6) Allopurinol 100 mg 11/27/19 21:00 11/30/19 08:44 Zyloprim PO 100 mg BID EMILI Administration Alprazolam 1 mg 11/27/19 10:20 11/30/19 13:05 Xanax PO 1 mg TIDPRN PRN Administration Anxiety Brimonidine Tartrate 1 drop 11/27/19 21:00 11/30/19 08:54 Alphagan 0.2% Ophth Soln R EYE 1 drop BID EMILI Administration Carvedilol 6.25 mg 11/28/19 08:00 11/30/19 16:06 Coreg PO 6.25 mg BID-WM EMILI Administration Enoxaparin Sodium 30 mg 11/28/19 09:00 11/30/19 08:44 Lovenox SC 30 mg 0900 EMILI Administration Furosemide 20 mg 11/29/19 14:00 11/30/19 13:05 Lasix PO 20 mg 0600,1400 EMILI Administration Latanoprost 1 drop 11/27/19 21:00 11/29/19 20:40 Xalatan 0.005% Ophth Soln R EYE 1 drp HS EMILI Administration Levothyroxine Sodium 100 mcg 11/28/19 06:00 11/30/19 05:10 Synthroid PO 100 mcg 0600 EMILI Administration Magnesium Oxide 400 mg 11/28/19 09:00 11/30/19 08:44 Magnesium Oxide PO 400 mg DAILY EMILI Administration Nifedipine 60 mg 11/28/19 09:00 11/30/19 08:44 Procardia Xl PO 60 mg DAILY EMILI Administration Ondansetron HCl 4 mg 11/27/19 10:17 11/29/19 09:11 Zofran IVP 4 mg Q6H PRN Administration Nausea/Vomiting Ondansetron HCl 4 mg 11/29/19 09:39 11/29/19 10:10 Zofran Odt PO 4 mg Q6H PRN Administration Nausea/Vomiting Pantoprazole Sodium 40 mg 11/28/19 09:00 11/30/19 08:44 Protonix PO 40 mg DAILY EMILI Administration Polyethylene Glycol 17 gm 11/30/19 09:00 11/30/19 08:45 Miralax PO 17 gm DAILY EMILI Administration Sodium Bicarbonate 650 mg 11/27/19 21:00 11/30/19 08:44 Bicarbonate, Sodium PO 650 mg BID EMILI Administration Sodium Chloride 10 ml 11/28/19 21:00 11/30/19 08:44 Flush - Normal Saline IVF 10 ml Q12HR EMILI Administration Sodium Chloride 10 ml 11/28/19 12:40 11/29/19 05:53 Flush - Normal Saline IVF 10 ml PRN PRN Administration Saline Flush - Exam General Appearance: awake alert ENT: normocephalic atraumatic Neck: supple Respiratory: normal chest expansion, no tachypnea Extremities: no cyanosis, no clubbing Neurological: cranial nerve grossly intact, no focal deficits Hosp A/P - Plan Hosp A/P (1) Hyperkalemia Code(s): E87.5 - HYPERKALEMIA Status: Resolved (2) AGUSTIN (acute kidney injury) Code(s): N17.9 - ACUTE KIDNEY FAILURE, UNSPECIFIED Status: Resolved (3) Hemorrhoids Code(s): K64.9 - UNSPECIFIED HEMORRHOIDS Status: Chronic Qualifiers: Hemorrhoid type: unspecified Qualified Code(s): K64.9 - Unspecified hemorrhoids (4) Chronic anemia Code(s): D64.9 - ANEMIA, UNSPECIFIED Status: Chronic (5) Obesity (BMI 30-39.9) Code(s): E66.9 - OBESITY, UNSPECIFIED Status: Chronic (6) Dyslipidemia Code(s): E78.5 - HYPERLIPIDEMIA, UNSPECIFIED Status: Chronic (7) History of pulmonary embolism Code(s): Z86.711 - PERSONAL HISTORY OF PULMONARY EMBOLISM Status: Chronic (8) Hypertension Code(s): I10 - ESSENTIAL (PRIMARY) HYPERTENSION Status: Chronic Qualifiers: Hypertension type: essential hypertension Qualified Code(s): I10 - Essential (primary) hypertension - Plan had hemorrhoid surgery 11/28/2019 electrolytes are stable, renal function is trending towards baseline has chronic edema in LE, says it hurts to wear stephanie hose continue lasix oral, sod bicarb, coreg, procardia, protonix, allopurinol and synthroid hemostable outpt f/u with harness repairer at [facility] upon dc. oral iron on discharge PT to mobilize as tolerated, may dc home if she ambulates and starts eating, d/ w . 11/29: The patient has not had a bowel movement yet. She is on laxatives. Hopefully we can DC her home tomorrow if she has a bowel movement.
[2019-11-30] MEDS: Latanoprost 0.005% Ophth Soln 2.5 ml Bottle R EYE SCH (20:50)
[2019-12-01] MEDS: HYDROcodone/Acetaminophen 10/325 mg Tablet PO PRN ×2 (03:15→11:41)
[2019-12-01] MEDS: Furosemide 20 MG TAB PO SCH ×2 (05:28→13:38)
[2019-12-01] MEDS: Levothyroxine Sodium 100 MCG TAB PO SCH (05:29)
[2019-12-01] MEDS: Carvedilol 6.25 MG TAB PO SCH (08:22)
[2019-12-01] MEDS: Allopurinol 100 MG TAB PO SCH (08:22)
[2019-12-01] MEDS: Polyethylene Glycol 3350 17 GM Packet PO SCH (08:23)
[2019-12-01] MEDS: NIFEdipine XL 60 MG TAB PO SCH (08:23)
[2019-12-01] MEDS: Magnesium Oxide 400 MG TAB PO SCH (08:23)
[2019-12-01] MEDS: Sodium Bicarbonate Tab 325 MG TAB PO SCH (08:23)
[2019-12-01] MEDS: Enoxaparin Sodium 30 MG/0.3 ML SYRINGE SC SCH (08:23)
[2019-12-01] MEDS: Ondansetron ODT 4 MG TAB PO PRN (08:33)
[2019-12-01] MEDS: Brimonidine Tartrate 0.2% Ophth Soln 5 ml Bottle R EYE SCH (08:34)
[2019-12-01 11:17] VITALS: BP 125/58; TEMP 97.5
--- NOTE | 2019-12-01 18:42 | PRG ---
DATE OF SERVICE: 12/01/2019 SUBJECTIVE: The patient noted with the following vital signs. OBJECTIVE: VITAL SIGNS: Afebrile, temperature 97.5, pulse 71, respiratory rate of 16 to 22, O2 saturation of 98%, and blood pressure 125/58. HEENT: Unremarkable. CARDIOVASCULAR SYSTEM: First and second sounds were heard. RESPIRATORY SYSTEM: Clear to auscultation. DIGESTIVE SYSTEM: Revealed a benign abdomen. EXTREMITIES: No peripheral edema. SKIN: No new gross rash. LYMPHATICS: No peripheral lymphadenopathy. IMPRESSION: 1. Acute on chronic kidney disease, seems to have resolved new baseline of chronic kidney disease stage 3. 2. Metabolic acidosis, possibly related to some component of type 4 renal tubular acidosis. 3. Morbid obesity. 4. Hyperkalemia, which has resolved. PLAN: 1. The patient to be permanently off benazepril, in place Procardia as her blood pressure medication. 2. Repeat chemistry as an outpatient, follow by the primary care physician. 3. Follow up with outpatient Nephrology followup, status post discharge recommended. Job ID: [id number]
--- NOTE | 2019-12-02 02:16 | DIS ---
DATE OF ADMISSION: 11/27/2019 DATE OF DISCHARGE: 12/01/2019 DISCHARGE DIAGNOSES: 1. Hyperkalemia. 2. Acute kidney injury. 3. Hemorrhoid. 4. Chronic anemia. 5. Obesity. 6. Dyslipidemia. 7. History of pulmonary embolism. 8. Hypertension. DISCHARGE MEDICATIONS: 1. Carvedilol 6.25 mg orally twice daily. 2. Ferrous sulfate 325 mg orally daily. 3. Lasix 20 mg orally twice daily. 4. MiraLAX 17 g orally daily. 5. Sodium bicarbonate 650 mg orally twice daily. HISTORY OF PRESENT ILLNESS AND COURSE: The patient is a 79-year-old female, who presented to the hospital with anemia due to internal hemorrhoidal bleeding. She was found to have hemoglobin of 5.8. The patient was on Coumadin, which was placed on hold. The patient received blood transfusion prior to presentation to the hospital. In the ER, the patient was found to be hyperkalemic with elevated creatinine level of 1.35. She was placed on IV fluids and her LOC inhibitors were discontinued. The patient also received sodium bicarbonate. These measures have led to improvement in her potassium level. The patient subsequently underwent hemorrhoid surgery on 11/27. Her postoperative stay was unremarkable and her kidney function returned to baseline. She was placed on laxatives and discharged home with outpatient followup with Surgery in 1 to 2 weeks. Job ID: [id number]
--- NOTE | 2019-12-03 06:17 | PQF ---
WALTER YOUNG MOEZ [id number] CLINICAL DOCUMENTATION CLARIFICATION FORM: POST DISCHARGE Addendum to original discharge summary date: ____ Late entry note date: __ DATE: 12/03/2019 ATTN: Louis Leon Please exercise your independent, professional judgment in responding to the clarification form. Clinical indicators are provided on the bottom of this form for your review In your clinical opinion based on clinical findings below, can you please identify the condition as the reason for IP admission if due to: Please check appropriate box(s): [ > ] Bleeding internal hemorrhoids [ > ] Hyperkalemia [ >] AGUSTIN [ ] Other diagnosis [ ] Unable to determine For continuity of documentation, please document condition throughout progress notes and discharge summary. Thank You. CLINICAL INDICATORS - SIGNS / SYMPTOMS / LABS Laboratory 11/26 Potassium 5.9, BUN 19, Creatinine 1.35, GFR 38, Anion gap 15 H&P p1 11/26 Was scheduled for hemorrhoidectomy this morning. The pt lab work paras to procedure showed apoattsium level of 5.9 H&P p3 11/26 Admitted to telemetry for hyperkalemia and mild acute kidney injury Operative report 11/27 Presented on 2 separate occasions with a very low hemoglobin of 5.8. No other source was identified other than her hemorrhoids RISK FACTORS H&P p1 11/26 79 year-old female H&P p1 11/26 Chronic anemia H&P p1 11/26 HTN H&P p1 11/26 s/p Partal nephrectomy H&P p3 11/26 Hyperkalemia PN p1 11/30 CKD 3 PN p1 11/30 Morbid Obesity PN p1 11/30 Metabolic acidosis TREATMENTS: Operative report p1 11/27 PPH stapled hemorrhoidectomy MAR 11/27 IV Normal saline 1L MAR 11/27 Sodium Bicarbonate 560 mg oral Nephrology consult 11/26 Dr Uriostegui Lorain H&P p2 11/26 Monitor and replace electrolytes PN pg1 11/27 Permanently discontinue Benazepril (This form is maintained as a part of the permanent medical record) 2014 [employer]. All Rights Reserved [email or web address] [email or web address]
--- NOTE | 2019-12-03 06:18 | PQF ---
WALTER YOUNG MOEZ [id number] [id number] CLINICAL DOCUMENTATION CLARIFICATION FORM: POST DISCHARGE Addendum to original discharge summary date: ____ Late entry note date: __ DATE: 12/03/2019 ATTN: Loius Leon Please exercise your independent, professional judgment in responding to the clarification form. Clinical indicators are provided on the bottom of this form for your review Please check appropriate box(s): [ ] Acute Renal Failure/AGUSTIN with Acute Tubular Necrosis (ATN) [ ] Acute Renal Failure/AGUSTIN without Acute Tubular Necrosis (ATN) [ >] Other diagnosis AGUSTIN on CKD 3 [ ] Unable to determine National Kidney Foundation Guidelines for CKD Staging Stage I Kidney damage with normal or increased GFRGFR > 90 Stage IIKidney damage with mildly decreased GFRGFR 60-89 Stage III Kidney damage with moderately decreased GFRGFR 30-59 Stage IVKidney damage with severely decreased GFRGFR 16-29 Stage VKidney failureGFR<15 ESRDEnd Stage Renal DiseaseOn dialysis Acute Renal Failure/Acute Kidney Failure defined as: Increases in SCr by (>) 0.3 mg/dl within 48 hours OR- Increases in SCr by (>) 1.5 times baseline, known or presumed to have occurred within the prior 7 days OR- Urine volume < 0.5 ml/kg/hour for 6 hours (KDIGO supplement 2012 for RIFLE/XIANG criteria) For continuity of documentation, please document condition throughout progress notes and discharge summary. Thank You. CLINICAL INDICATORS - SIGNS / SYMPTOMS / LABS / RESULTS AND LOCATION IN MR Laboratory 11/26 BUN 19, Creatinine 1.35, GFR 38, Anion gap 15 Laboratory 11/27 BUN 18, Creatinine 1.27, GFR 41, Anion gap 16 Laboratory 11/28 BUN 17, Creatinine 1.35, GFR 48, Anion gap 21 H&P p3 11/26 Admitted to telemtry for hyperkalemia and mild acute kidney injury PN p1 11/30 Metabolic acidosis, possibly related to some component of type 4 renal tubular acidosis H&P p2 11/26 There is 1+ peripheral edema Consult p1 11/26 chronic kidney disease versus acute on chronic kidney disease PN p1 11/27 has general weakness Event note pg1 11/28 no urine output, unable to empty bladder RISK FACTORS / RESULTS AND LOCATION IN MR H&P p1 11/26 79 year-old female H&P p1 11/26 Chronic anemia H&P p1 11/26 HTN H&P p1 11/26 s/p Partal nephrectomy H&P p3 11/26 Hyperkalemia PN p1 11/30 CKD 3 PN p1 11/30 Morbid Obesity PN p1 11/30 Metabolic acidosis TREATMENTS / RESULTS AND LOCATION IN MR SEP 17 IV Normal saline 1L SEP 17 Sodium Bicarbonate 560 mg oral Nephrology consult 11/26 Dr Uriostegui, [place] [facility] monitoring 11/27 H&P p2 11/26 Monitor and replace electrolytes PN pg1 11/27 Permanently discontinue Benazepril (This form is maintained as a part of the permanent medical record) 2014 [employer]. All Rights Reserved [email or web address]
--- NOTE | 2019-12-03 06:19 | PQF ---
WALTER YOUNG MICHAEL W MD [id number] [facility] [id number] CLINICAL DOCUMENTATION CLARIFICATION FORM: POST DISCHARGE Addendum to original discharge summary date: ____ Late entry note date: __ DATE:12/03/2019 ATTN: Noam Latham Please exercise your independent, professional judgment in responding to the clarification form. Clinical indicators are provided on the bottom of this form for your review Please check appropriate box(s): In the description of the operative procedure a couple of areas with alireza oozing was noted by the surgeon. If possible would you please further clarify if this was: [ x] Incidental occurrence inherent in the surgical procedure [ ] Intraoperative bleeding as Complication of the procedure [ ] Other [ ] Unable to determine For continuity of documentation, please document condition throughout progress notes and discharge summary. Thank You. CLINICAL INDICATORS - SIGNS / SYMPTOMS / LABS Operative report p1 11/27 Presented on 2 separate occasions with a very low hemoglobin of 5.8. No other source was identified other than her hemorrhoids Operative report p1 11/27 There were couple of areas of minimal oozing that were repaired with a single interrupted suture of 3-0 VIcryl RISK FACTORS Operative report p1 11/27 Bleeding internal hemorrhoids H&P p1 11/26 79 year-old female H&P p1 11/26 HTN PN p1 11/30 CKD 3 PN p1 11/30 Morbid Obesity TREATMENTS: Operative report p1 11/27 PPH stapled hemorrhoidectomy Operative report p1 11/27 Repaired oozing area with suture (This form is maintained as a part of the permanent medical record) 2014 [employer]. All Rights Reserved [email or web address]
== END 2019-12-01 15:59 | disposition home or self-care (01) | DRG 348 ==
LOC: SDC 07:07 → 2NO 10:17
PROVIDERS: ADMIT Internal Medicine; ATTEND Internal Medicine
PROC: 06BY0ZC Excision of Hemorrhoidal Plexus, Open Approach (ICD-10-PCS; principal; 2019-11-28)
DX: K64.8 Other hemorrhoids (principal); N17.9 Acute kidney failure, unspecified; E87.2 Acidosis; R33.9 Retention of urine, unspecified; E87.5 Hyperkalemia; I12.9 Hypertensive chronic kidney disease with stage 1 through stage 4 chronic kidney disease, or unspecified chronic kidney disease; E66.01 Morbid (severe) obesity due to excess calories; E03.9 Hypothyroidism, unspecified; F41.9 Anxiety disorder, unspecified; Z96.641 Presence of right artificial hip joint; Z96.652 Presence of left artificial knee joint; J44.9 Chronic obstructive pulmonary disease, unspecified; E78.5 Hyperlipidemia, unspecified; N25.89 Other disorders resulting from impaired renal tubular function; D63.1 Anemia in chronic kidney disease; N18.3 Chronic kidney disease, stage 3 (moderate); Z68.39 Body mass index [BMI] 39.0-39.9, adult; Z86.711 Personal history of pulmonary embolism; Z90.5 Acquired absence of kidney; Z90.710 Acquired absence of both cervix and uterus; Z79.899 Other long term (current) drug therapy; Z79.890 Hormone replacement therapy; Z88.5 Allergy status to narcotic agent; Z91.041 Radiographic dye allergy status
CPT/HCPCS: 36415; 36416; 71046; 80048; 80053; 81001; 84132; 85025; 87086; 87635; 93005; J0694; J1644; J1650; J1885; J1940; J2001; J2405; J2550; J2704; J3010; Q0162; S0020; U0003